=== PATIENT | female | born 1970 | race African-American/Black ===

== ENCOUNTER 2018-05-30 08:36 | Emergency (ER) | payer MEDICAID ==
[2018-05-30] MEDS ORDERED: ALBUTEROL SULF 2.5 MG/0.5ML(0.5%) NEB SOLN ONE ×2 (13:52→13:53)
[2018-05-30] MEDS ORDERED: IPRATROPIUM BROM 0.5 MG/2.5ML INH SOL ONE (13:53)
== END 2018-05-30 09:12 | disposition left against medical advice (07) ==
LOC: ER 08:40
DX: R06.02 Shortness of breath (principal); Z53.21 Procedure and treatment not carried out due to patient leaving prior to being seen by health care provider
CPT/HCPCS: J7611; J7644

== ENCOUNTER 2018-05-30 12:45 | Emergency (ER) | payer MEDICAID ==
[~2018-05-30] VITALS: Ht 170.2 cm; Wt 99.3 kg
[2018-05-30 13:37] VITALS: BP 129/67
[2018-05-30] MEDS ORDERED: IPRATROPIUM BROM 0.5 MG/2.5ML INH SOL NEB ONE (13:45)
[2018-05-30] MEDS ORDERED: cefTRIAXone SOD 1,000 MG VL IM ONE (13:45)
[2018-05-30] MEDS ORDERED: ALBUTEROL SULF 2.5 MG/0.5ML(0.5%) NEB SOLN NEB ONE (13:45)
== END 2018-05-30 14:34 | disposition home or self-care (01) ==
LOC: ER 12:45
DX: J45.909 Unspecified asthma, uncomplicated (principal); J03.90 Acute tonsillitis, unspecified; E11.9 Type 2 diabetes mellitus without complications; E78.5 Hyperlipidemia, unspecified; I10 Essential (primary) hypertension
CPT/HCPCS: 71046; 93005; 94640; 96372; 99283; J0696

== ENCOUNTER 2019-03-19 10:04 | Emergency (ER) | payer MEDICAID ==
[~2019-03-19] VITALS: Ht 170.2 cm; Wt 90.7 kg
[2019-03-19 10:22] VITALS: BP 150/91
== END 2019-03-19 11:43 | disposition home or self-care (01) ==
LOC: ER 10:04
DX: K04.7 Periapical abscess without sinus (principal); G51.0 Bell's palsy; J45.909 Unspecified asthma, uncomplicated; E11.9 Type 2 diabetes mellitus without complications; E78.5 Hyperlipidemia, unspecified; I10 Essential (primary) hypertension; F41.9 Anxiety disorder, unspecified; Z88.8 Allergy status to other drugs, medicaments and biological substances

== ENCOUNTER 2020-01-10 07:50 | Emergency (ER) | payer MEDICAID ==
[~2020-01-10] VITALS: Ht 170.2 cm; Wt 92.5 kg
[2020-01-10] MEDS ORDERED: cloNIDine HCL 0.1 MG TAB ONE (08:24)
[2020-01-10] MEDS ORDERED: cloNIDine HCL 0.1 MG TAB PO ONE ×2 (08:30→21:00)
[2020-01-10 09:09] LABS: Basophils # (auto) 0.1 10 ^3/uL (0-0.2); Basophils % (auto) 0.8 % (0.0-2.0); Eosinophils # (auto) 0 10 ^3/uL (0-0.8); Eosinophils % (auto) 0.1 % (0.0-7.0); Hemoglobin 12.1 g/dL (12.2-16.2); Lymphocytes % (auto) 8.7 % (10.0-50.0); Mean Corpuscular Hemoglobin 28.1 pg (28.0-32.0); Mean Corpuscular Hgb Conc. 31.7 g/dL (32.0-36.0); Mean Corpuscular Volume 88.4 fL (80.0-100.0); Monocytes # (auto) 0.5 10 ^3/uL (0-1.3); Monocytes % (auto) 4.1 % (0.0-12.0); Neutrophils # (auto) 9.6 10 ^3/uL (1.6-8.6); Neutrophils % (auto) 86.3 % (37.0-80.0); Platelet Count (auto) 401 10^3/uL (140-450); Red Cell Distribution Width 13.8 % (11.8-14.3); White Blood Cell 11.2 10^3/uL (4.4-10.8)
[2020-01-10 09:25] LABS: Calcium 9.3 mg/dL (8.5-10.1); Potassium 4.2 mmol/L (3.5-5.1)
[2020-01-10 09:28] LABS: Albumin 3.7 g/dL (3.4-5.0); BUN/Creatinine Ratio 18.2
[2020-01-10 09:33] LABS: Bilirubin, Total 0.8 mg/dL (0.2-1.0); Total Protein 8.4 g/dL (6.4-8.2)
[2020-01-10] MEDS ORDERED: SODIUM CHLORIDE 0.9% 1,000 ML IV ONE (10:22)
[2020-01-10] MEDS ORDERED: PROMETHAZINE HCL 25 MG/ML 1ML IV PRN (10:30)
[2020-01-10] MEDS ORDERED: KETOROLAC TROMETH 30 MG/ML 1ML VIAL IV ONE ×2 (10:30→21:00)
[2020-01-10 11:32] LABS: Urine Bacteria MOD /hpf (None Seen); Urine Blood 2+ /uL (Negative); Urine Hyaline Cast FEW /lpf (0 - 2); Urine Mucus FEW (None Seen); Urine Specific Gravity 1.031 (1.001-1.035); Urine WBC 157 /hpf (0 - 5)
[2020-01-10 12:21] LABS: Magnesium 1.9 mg/dL (1.6-2.6)
[2020-01-10] MEDS ORDERED: IOHEXOL 350 MG/ML 100ML IJ ONE (13:06)
[2020-01-10] MEDS ORDERED: cefTRIAXone 1GM/50ML D5W 50 ML IV ONE (15:00)
[2020-01-11] MEDS ORDERED: cefTRIAXone 1GM/50ML D5W 50 ML IV ONE (07:00)
[2020-01-11] MEDS ORDERED: METF-370 PO (08:51)
[2020-01-11] MEDS ORDERED: GLIP5TAB12 PO (08:54)
[2020-01-11] MEDS ORDERED: AMLO10TA13 PO (08:54)
[2020-01-11] MEDS ORDERED: ONDANSETRON HCL 4 MG/2 ML VIAL IV PRN (12:00)
[2020-01-11] MEDS ORDERED: HYDROmorphone HCL 2 MG/ML VL IV PRN ×2 (12:00→12:30)
[2020-01-11] MEDS ORDERED: DEXTROSE (50%) 50ML SYRG IV PRN (12:15)
[2020-01-11] MEDS ORDERED: HYDROcodone-ACET 5/325MG TAB PO PRN (12:30)
[2020-01-11] MEDS ORDERED: ACETAMINOPHEN 325 MG TAB PO PRN (12:30)
[2020-01-11] MEDS ORDERED: hydrALAZINE HCL 20 MG/ML VL IV PRN (12:30)
[2020-01-11] MEDS ORDERED: amLODIPine BESYLATE 5 MG TAB PO SCH (12:30)
[2020-01-11] MEDS ORDERED: METOPROLOL TARTRATE 25 MG TAB PO SCH (12:30)
[2020-01-11 12:32] LABS: Basophils # (auto) 0 10 ^3/uL (0-0.2); Basophils % (auto) 0.3 % (0.0-2.0); Eosinophils # (auto) 0.4 10 ^3/uL (0-0.8); Eosinophils % (auto) 4.5 % (0.0-7.0); Hematocrit 34.2 % (36.0-46.0); Hemoglobin 10.9 g/dL (12.2-16.2); Lymphocytes # (auto) 1.4 10 ^3/uL (0.4-5.4); Lymphocytes % (auto) 17.3 % (10.0-50.0); Mean Corpuscular Hemoglobin 28.4 pg (28.0-32.0); Mean Corpuscular Hgb Conc. 31.9 g/dL (32.0-36.0); Mean Corpuscular Volume 89.1 fL (80.0-100.0); Monocytes # (auto) 0.5 10 ^3/uL (0-1.3); Monocytes % (auto) 6.7 % (0.0-12.0); Neutrophils # (auto) 5.8 10 ^3/uL (1.6-8.6); Neutrophils % (auto) 71.2 % (37.0-80.0); Platelet Count (auto) 332 10^3/uL (140-450); Red Blood Cells 3.84 10^6/uL (4.0-5.20); Red Cell Distribution Width 13.6 % (11.8-14.3); White Blood Cell 8.1 10^3/uL (4.4-10.8)
[2020-01-11 12:48] LABS: Calcium 9.3 mg/dL (8.5-10.1); Potassium 3.9 mmol/L (3.5-5.1)
[2020-01-11 12:55] LABS: BUN/Creatinine Ratio 19.6
[2020-01-11 13:36] LABS: Cholesterol 211 mg/dL (< 200)
[2020-01-11 13:38] LABS: HDL Cholesterol 52 mg/dL (40-59); LDL Cholesterol 131 mg/dL (< 100); Triglycerides 175 mg/dL (< 150)
[2020-01-11] MEDS ORDERED: InsuLIN REG 1unit/0.01ml Soln (100units/ml) SC SCH (17:00)
[2020-01-11] MEDS ORDERED: ACCU-CHEK COMFORT CURVE STRIP VI SCH (17:00)
[2020-01-11] MEDS ORDERED: cefTRIAXone 1GM/50ML D5W 50 ML IV SCH (19:30)
[2020-01-11 20:01] VITALS: BP 173/87
[2020-01-11] MEDS ORDERED: cloNIDine HCL 0.1 MG TAB PO ONE (20:15)
[2020-01-12] MEDS ORDERED: cefTRIAXone 1GM/50ML D5W 50 ML IV SCH (10:00)
[2020-01-12] MEDS ORDERED: PANTOPRAZOLE 40 MG/10 ML VIAL INJ IV ONE (10:00)
== END 2020-01-11 20:34 | disposition home or self-care (01) ==
LOC: ER 07:50
DX: N39.0 Urinary tract infection, site not specified (principal); I10 Essential (primary) hypertension; E11.65 Type 2 diabetes mellitus with hyperglycemia; R79.89 Other specified abnormal findings of blood chemistry; E78.5 Hyperlipidemia, unspecified; J45.909 Unspecified asthma, uncomplicated; R11.2 Nausea with vomiting, unspecified
CPT/HCPCS: 36415; 71046; 71275; 74176; 76705; 76830; 76856; 80048; 80053; 80061; 81001; 82962; 83690; 83735; 84484; 85025; 85379; 87040; 93970; 96361; 96365; 96366; 96372; 96375; 96376; 99285; J0696; J1885; J2550; Q9967

== ENCOUNTER 2020-12-02 10:10 | Inpatient (IN) | payer MEDICAID ==
[~2020-12-02] VITALS: Ht 170.2 cm; Wt 66.2 kg
[~2020-12-02 10:10] MED LIST: AMLO-496 PO; GLIP5TAB12 PO; METF-370 PO
[2020-12-02] MEDS ORDERED: SODIUM CHLORIDE 0.9% 1,000 ML IV ONE (10:45)
[2020-12-02 11:15] LABS: Basophils # (auto) 0 10 ^3/uL (0-0.2); Basophils % (auto) 0.7 % (0.0-2.0); Eosinophils # (auto) 0.3 10 ^3/uL (0-0.8); Eosinophils % (auto) 5.5 % (0.0-7.0); Hematocrit 31.6 % (36.0-46.0); Hemoglobin 10.7 g/dL (12.2-16.2); Lymphocytes % (auto) 41.1 % (10.0-50.0); Mean Corpuscular Hemoglobin 28.7 pg (28.0-32.0); Mean Corpuscular Hgb Conc. 33.8 g/dL (32.0-36.0); Mean Corpuscular Volume 84.9 fL (80.0-100.0); Monocytes # (auto) 0.3 10 ^3/uL (0-1.3); Monocytes % (auto) 6.3 % (0.0-12.0); Neutrophils # (auto) 2.2 10 ^3/uL (1.6-8.6); Neutrophils % (auto) 46.4 % (37.0-80.0); Nucleated Red Blood Cells % 0.1 %; Platelet Count (auto) 368 10^3/uL (140-450); Red Blood Cells 3.73 10^6/uL (4.0-5.20); Red Cell Distribution Width 13.9 % (11.8-14.3); White Blood Cell 4.8 10^3/uL (4.4-10.8)
[2020-12-02 11:31] LABS: Albumin 3.4 g/dL (3.4-5.0); Calcium 9.4 mg/dL (8.5-10.1); Potassium 3.8 mmol/L (3.5-5.1)
[2020-12-02 11:38] LABS: BUN/Creatinine Ratio 20.5; Bilirubin, Total 0.3 mg/dL (0.2-1.0); Total Protein 7.3 g/dL (6.4-8.2)
[2020-12-02] MEDS ORDERED: ENOXAPARIN SOD 80 MG/0.8ML SYRINGE SC ONE (11:45)
[2020-12-02] MEDS ORDERED: ASPirin 81 mg TAB PO ONE (11:45)
[2020-12-02] MEDS ORDERED: ACETAMINOPHEN 500 MG TAB PO PRN (13:45)
[2020-12-02] MEDS ORDERED: cloNIDine HCL 0.1 MG TAB PO PRN (13:45)
[2020-12-02] MEDS ORDERED: LABETALOL HCL 5 MG/ML 4ML SYRINGE IV ONE (13:45)
[2020-12-02] MEDS ORDERED: METOPROLOL SUCCINATE XL 50 MG TAB PO ONE (13:45)
[2020-12-02] MEDS ORDERED: DEXTROSE (50%) 50ML SYRG IV PRN (13:45)
[2020-12-02] MEDS ORDERED: NITROGLYCERIN 0.4 MG SL TAB SL PRN (13:45)
[2020-12-02] MEDS ORDERED: PROMETHAZINE HCL 25 MG/ML 1ML IV PRN (13:45)
[2020-12-02] MEDS ORDERED: MORPHINE SULF INJ 2 MG/ML SYRINGE 1ML IV PRN (13:45)
[2020-12-02 14:14] LABS: Urine Bacteria NONE SEEN /hpf (None Seen); Urine Blood Negative /uL (Negative); Urine Specific Gravity 1.028 (1.001-1.035); Urine WBC 53 /hpf (0 - 5)
[2020-12-02 14:19] LABS: Alcohol, Urine < 3.0 mg/dL (0-10); Amphetamine Screen, Urine NEGATIVE (NEGATIVE); Barbiturate Scree,Urine NEGATIVE (NEGATIVE); Benzodiazephine Screen, Urine NEGATIVE (NEGATIVE); Cannabinoid Screen, Urine NEGATIVE (NEGATIVE); Cocaine Screen, Urine NEGATIVE (NEGATIVE); Opiate Scree,Urine NEGATIVE (NEGATIVE); Phencyclidine Screen, Urine NEGATIVE (NEGATIVE)
[2020-12-02 14:47] LABS: INR 1.03 (0.9-1.15); Partial Thromboplastin Time 34.5 sec (23.0-31.2)
[2020-12-02 17:14] LABS: Cholesterol 232 mg/dL (< 200)
[2020-12-02 17:18] LABS: HDL Cholesterol 46 mg/dL (40-59); LDL Cholesterol 146 mg/dL (< 100); Triglycerides 201 mg/dL (< 150)
[2020-12-02] MEDS: ACCU-CHEK COMFORT CURVE STRIP VI SCH ×2 (18:42→22:56)
[2020-12-02] MEDS: InsuLIN REG 1unit/0.01ml Soln (100units/ml) SC SCH ×2 (18:50→22:00)
[2020-12-02] MEDS: hydrALAZINE HCL 20 MG/ML VL IV PRN (19:46)
[2020-12-02 22:00] VITALS: BP 153/83
[2020-12-02] MEDS ORDERED: ATORVASTATIN 20 MG TAB PO SCH ×2 (22:00)
[2020-12-02] MEDS: GABAPENTIN 100 MG CAP PO SCH (22:55)
[2020-12-02] MEDS: amLODIPine BESYLATE 5 MG TAB PO SCH (22:56)
[2020-12-02] MEDS: FAMOTIDINE 20 MG TAB PO SCH (22:56)
[2020-12-02] MEDS: HYDROcodone-ACET 5/325MG TAB PO PRN (23:07)
[2020-12-03] MEDS ORDERED: PANT40T PO (03:46)
[2020-12-03] MEDS ORDERED: ASPI-231 PO (03:46)
[2020-12-03] MEDS ORDERED: BACL10TA PO (03:46)
[2020-12-03] MEDS ORDERED: METF-372 PO (03:46)
[2020-12-03] MEDS ORDERED: CLON0.3T PO (03:46)
[2020-12-03] MEDS ORDERED: ATOR-47 PO (03:46)
[2020-12-03] MEDS ORDERED: NIFE1TAB30 PO (03:46)
[2020-12-03] MEDS ORDERED: HYDR-4798 PO (03:46)
[2020-12-03] MEDS ORDERED: SERT50TA19 PO (03:46)
[2020-12-03] MEDS ORDERED: ALBU108A5 INH (03:46)
[2020-12-03] MEDS ORDERED: CLOP75TA70 PO (03:46)
[2020-12-03] MEDS ORDERED: DOCU-94 PO (03:47)
[2020-12-03] MEDS ORDERED: GABA100C9 PO (03:47)
[2020-12-03 05:00] VITALS: BP 155/96
[2020-12-03] MEDS: GABAPENTIN 100 MG CAP PO SCH (06:40)
[2020-12-03] MEDS: HYDROcodone-ACET 5/325MG TAB PO PRN (06:41)
[2020-12-03] MEDS: ACCU-CHEK COMFORT CURVE STRIP VI SCH ×3 (06:44→17:00)
[2020-12-03] MEDS: InsuLIN REG 1unit/0.01ml Soln (100units/ml) SC SCH ×3 (06:44→17:00)
[2020-12-03 08:00] VITALS: BP 167/98
[2020-12-03] MEDS: hydrALAZINE HCL 20 MG/ML VL IV PRN ×2 (08:32→14:20)
[2020-12-03] MEDS ORDERED: ADENOSINE 56 MG in GIVE UN-DILUTED 0 ML IV ONE (08:45)
[2020-12-03 09:00] VITALS: BP 167/98
[2020-12-03] MEDS ORDERED: METOPROLOL SUCCINATE XL 50 MG TAB PO SCH (10:00)
[2020-12-03] MEDS ORDERED: CLOPIDOGREL BISULFATE 75 MG TAB PO SCH (10:00)
[2020-12-03] MEDS ORDERED: ASPirin 81 mg TAB PO SCH (10:00)
[2020-12-03] MEDS: FAMOTIDINE 20 MG TAB PO SCH (10:40)
[2020-12-03] MEDS: amLODIPine BESYLATE 5 MG TAB PO SCH (10:53)
[2020-12-03] MEDS ORDERED: HYDR50TA15 PO (12:29)
[2020-12-03] MEDS ORDERED: OXYCODONE W/ ACETAMINOPHEN 5/325MG TABLET PO PRN (12:30)
[2020-12-03] MEDS ORDERED: LACT10SO3 PO (12:30)
[2020-12-03] MEDS: MAGNESIUM CITRATE SOLUTION 300 ML BTL PO ONE ×2 (12:30→12:55)
[2020-12-03 12:39] VITALS: BP 165/91
[2020-12-03] MEDS ORDERED: SENNA 8.6 MG TAB PO ONE (13:45)
[2020-12-03] MEDS ORDERED: GABAPENTIN 300 MG CAP PO SCH (14:00)
[2020-12-03] MEDS ORDERED: BISACODYL 10 MG RECT SUPP PR ONE (14:15)
[2020-12-03 16:07] VITALS: BP 154/90
[2020-12-03] MEDS ORDERED: cloNIDine HCL 0.1 MG TAB PO ONE (16:15)
[2020-12-03 16:56] VITALS: BP 162/104
[2020-12-03] MEDS ORDERED: cloNIDine HCL 0.1 MG TAB PO SCH (22:00)
== END 2020-12-03 18:35 | disposition hospice, home (50) | DRG 198 ==
LOC: ER 10:10 → TELE 13:43 → TELE-EAST 20:30
PROVIDERS: ADMIT Hospitalist; ATTEND Hospitalist
DX: R07.89 Other chest pain (principal); I24.9 Acute ischemic heart disease, unspecified; E11.22 Type 2 diabetes mellitus with diabetic chronic kidney disease; R54 Age-related physical debility; G62.9 Polyneuropathy, unspecified; I25.10 Atherosclerotic heart disease of native coronary artery without angina pectoris; I65.1 Occlusion and stenosis of basilar artery; G89.29 Other chronic pain; J44.9 Chronic obstructive pulmonary disease, unspecified; N18.9 Chronic kidney disease, unspecified; I12.9 Hypertensive chronic kidney disease with stage 1 through stage 4 chronic kidney disease, or unspecified chronic kidney disease; R77.8 Other specified abnormalities of plasma proteins; Z20.822 Contact with and (suspected) exposure to COVID-19; F41.9 Anxiety disorder, unspecified; Z90.710 Acquired absence of both cervix and uterus; Z79.02 Long term (current) use of antithrombotics/antiplatelets; Z79.82 Long term (current) use of aspirin; Z79.899 Other long term (current) drug therapy; Z80.3 Family history of malignant neoplasm of breast; Z82.3 Family history of stroke; Z82.49 Family history of ischemic heart disease and other diseases of the circulatory system; Z83.3 Family history of diabetes mellitus; I69.351 Hemiplegia and hemiparesis following cerebral infarction affecting right dominant side
CPT/HCPCS: 36415; 70450; 70545; 70547; 70551; 71045; 78452; 80053; 80061; 80307; 81001; 81025; 82962; 83036; 84484; 85025; 85610; 85730; 87426; 93005; 93017; 93306; 93925; 96361; 96372; 96374; 96375; G0378; J0153; J1815; J3490

== ENCOUNTER 2021-01-17 04:07 | Emergency (ER) | payer MEDICAID ==
[~2021-01-17] VITALS: Ht 170.2 cm; Wt 71.2 kg
[~2021-01-17 04:07] MED LIST changes: +ALBU108A5 INH; -AMLO-496 PO; +ASPI-231 PO; +ATOR-47 PO; +BACL10TA PO; +CLON0.3T PO; +CLOP75TA70 PO; +DOCU-94 PO; +GABA100C9 PO; -GLIP5TAB12 PO; +HYDR-4798 PO; +HYDR50TA15 PO; +LACT10SO3 PO; -METF-370 PO; +METF-372 PO; +NIFE1TAB30 PO; +PANT40T PO; +SERT50TA19 PO
[2021-01-17 05:48] LABS: Basophils # (auto) 0 10 ^3/uL (0-0.2); Basophils % (auto) 0.7 % (0.0-2.0); Eosinophils # (auto) 0 10 ^3/uL (0-0.8); Eosinophils % (auto) 0.1 % (0.0-7.0); Hematocrit 36.2 % (36.0-46.0); Hemoglobin 11.9 g/dL (12.2-16.2); Lymphocytes # (auto) 0.9 10 ^3/uL (0.4-5.4); Lymphocytes % (auto) 14.4 % (10.0-50.0); Mean Corpuscular Hemoglobin 27.7 pg (28.0-32.0); Mean Corpuscular Hgb Conc. 32.9 g/dL (32.0-36.0); Mean Corpuscular Volume 84.1 fL (80.0-100.0); Monocytes # (auto) 0.4 10 ^3/uL (0-1.3); Monocytes % (auto) 6.4 % (0.0-12.0); Neutrophils # (auto) 5.2 10 ^3/uL (1.6-8.6); Neutrophils % (auto) 78.4 % (37.0-80.0); Red Cell Distribution Width 13.8 % (11.8-14.3); White Blood Cell 6.6 10^3/uL (4.4-10.8)
[2021-01-17 06:08] LABS: Albumin 3.6 g/dL (3.4-5.0); Calcium 9.3 mg/dL (8.5-10.1); Potassium 3.9 mmol/L (3.5-5.1)
[2021-01-17 06:14] LABS: BUN/Creatinine Ratio 13.9; Bilirubin, Total 0.5 mg/dL (0.2-1.0); Total Protein 8.6 g/dL (6.4-8.2)
[2021-01-17] MEDS ORDERED: ENOXAPARIN SOD 80 MG/0.8ML SYRINGE SC ONE (06:30)
[2021-01-17] MEDS ORDERED: HYDROcodone-ACET 10/325MG TAB PO ONE (10:00)
[2021-01-17 10:07] VITALS: BP 174/90
== END 2021-01-17 11:07 | disposition home or self-care (01) ==
LOC: EDBD 04:07 → ER 04:07
DX: R07.9 Chest pain, unspecified (principal); R06.6 Hiccough; I10 Essential (primary) hypertension; E11.9 Type 2 diabetes mellitus without complications; E78.5 Hyperlipidemia, unspecified; Z86.73 Personal history of transient ischemic attack (TIA), and cerebral infarction without residual deficits; Z79.01 Long term (current) use of anticoagulants; Z79.899 Other long term (current) drug therapy; Z88.8 Allergy status to other drugs, medicaments and biological substances; Z20.822 Contact with and (suspected) exposure to COVID-19
CPT/HCPCS: 36415; 71045; 80053; 84484; 85025; 87426; 93005; 96372; 99285; J1650

== ENCOUNTER 2023-09-02 09:06 | Inpatient (IN) | payer OTHER, MEDICAID ==
[~2023-09-02] VITALS: Ht 171.4 cm; Wt 78.5 kg
[~2023-09-02 09:06] MED LIST changes: -ASPI-231 PO; +ASPI1TAB20 PO; +GABA-1308 PO; -GABA100C9 PO; +HYDR-4297 PO; -HYDR50TA15 PO; +SERT-206 PO; -SERT50TA19 PO
[2023-09-02] MEDS: cloNIDine HCL 0.1 MG TAB PO ONE (09:36)
[2023-09-02] MEDS: ONDANSETRON HCL 4 MG/2 ML VIAL IV ONE (10:20)
[2023-09-02 10:30] LABS: Basophils # (auto) 0 10 ^3/uL (0-0.2); Basophils % (auto) 0.6 % (0.0-2.0); Eosinophils # (auto) 0.3 10 ^3/uL (0-0.8); Eosinophils % (auto) 4.9 % (0.0-7.0); Hematocrit 39.4 % (36.0-46.0); Hemoglobin 12.6 g/dL (12.2-16.2); Lymphocytes # (auto) 1.8 10 ^3/uL (0.4-5.4); Lymphocytes % (auto) 34.4 % (10.0-50.0); Mean Corpuscular Hemoglobin 27.8 pg (28.0-32.0); Mean Corpuscular Hgb Conc. 31.9 g/dL (32.0-36.0); Mean Corpuscular Volume 87.2 fL (80.0-100.0); Monocytes # (auto) 0.4 10 ^3/uL (0-1.3); Monocytes % (auto) 7.9 % (0.0-12.0); Neutrophils # (auto) 2.7 10 ^3/uL (1.6-8.6); Neutrophils % (auto) 52.2 % (37.0-80.0); Nucleated Red Blood Cells % 0.1 %; Red Blood Cells 4.52 10^6/uL (4.0-5.20); White Blood Cell 5.2 10^3/uL (4.4-10.8)
[2023-09-02 10:47] LABS: Alanine Aminotransferase 14 U/L (7-40); Albumin 4.7 g/dL (3.2-4.8); Alkaline Phosphatase 87 U/L (46-116); Anion Gap 6 (5-15); Aspartate Aminotransferase 19 U/L (13-40); BUN/Creatinine Ratio 11.4 (10.0-20.0); Blood Urea Nitrogen 12 mg/dL (9-23); Calcium 10.5 mg/dL (8.7-10.4); Carbon Dioxide 28 mmol/L (20-30); Chloride 106 mmol/L (98-107); Glucose 151 mg/dL (74-106); Lipase 88 U/L (12-53); Potassium 3.8 mmol/L (3.5-5.1); Sodium 140 mmol/L (136-145)
[2023-09-02 10:48] LABS: Bilirubin, Total 0.5 mg/dL (0.2-1.0); Total Protein 8.1 g/dL (5.7-8.2)
[2023-09-02 12:23] VITALS: PULSE 85; RESP 17; O2SAT 98
[2023-09-02] MEDS ORDERED: MORPHINE SULFATE INJ 2 MG/ml SYRG IV PRN (14:15)
[2023-09-02] MEDS ORDERED: DOCUSATE SOD 100 MG CAP PO PRN (14:15)
[2023-09-02] MEDS ORDERED: ONDANSETRON HCL 4 MG/2 ML VIAL IV PRN (14:15)
[2023-09-02] MEDS ORDERED: NITROGLYCERIN 0.4 MG SL TAB SL PRN (14:15)
[2023-09-02] MEDS ORDERED: LABE300T3 PO (14:16)
[2023-09-02] MEDS: SODIUM CHLORIDE 0.9% 1,000 ML IV ONE (15:30)
[2023-09-02] MEDS: hydrALAZINE HCL 20 MG/ML VL IV PRN (16:43)
[2023-09-02 17:50] VITALS: BP 162/80
[2023-09-02 18:36] VITALS: BP 159/89; PULSE 101
[2023-09-02 20:00] VITALS: BP 154/88; PULSE 102; RESP 18; TEMP 98.1; O2SAT 93
[2023-09-02] MEDS: ATORVASTATIN 20 MG TAB PO SCH (21:08)
[2023-09-02] MEDS: cloNIDine HCL 0.1 MG TAB PO SCH (21:09)
[2023-09-02] MEDS: LABETALOL HCL 200 MG TAB PO SCH (21:11)
[2023-09-02 22:03] VITALS: BP 154/88; PULSE 110; RESP 18; TEMP 98.1; O2SAT 93
[2023-09-03] VITALS (7 sets, daily range): BP systolic 91–134; BP diastolic 50–70; PULSE 64–78; RESP 16–21; TEMP 97.6–98.3; O2SAT 95–98
[2023-09-03 05:27] LABS: Basophils # (auto) 0 10 ^3/uL (0-0.2); Basophils % (auto) 0.4 % (0.0-2.0); Eosinophils # (auto) 0.2 10 ^3/uL (0-0.8); Eosinophils % (auto) 4.2 % (0.0-7.0); Hematocrit 34.4 % (36.0-46.0); Hemoglobin 11.1 g/dL (12.2-16.2); Lymphocytes # (auto) 1.9 10 ^3/uL (0.4-5.4); Mean Corpuscular Hemoglobin 28.4 pg (28.0-32.0); Mean Corpuscular Hgb Conc. 32.4 g/dL (32.0-36.0); Mean Corpuscular Volume 87.6 fL (80.0-100.0); Monocytes # (auto) 0.4 10 ^3/uL (0-1.3); Neutrophils # (auto) 2.3 10 ^3/uL (1.6-8.6); Neutrophils % (auto) 47.4 % (37.0-80.0); Nucleated Red Blood Cells % 0.2 %; Red Blood Cells 3.93 10^6/uL (4.0-5.20); Red Cell Distribution Width 13.6 % (11.8-14.3); White Blood Cell 4.8 10^3/uL (4.4-10.8)
[2023-09-03 05:37] LABS: Alanine Aminotransferase 10 U/L (7-40); Alkaline Phosphatase 71 U/L (46-116); Anion Gap 6 (5-15); Aspartate Aminotransferase 22 U/L (13-40); BUN/Creatinine Ratio 10.8 (10.0-20.0); Blood Urea Nitrogen 15 mg/dL (9-23); Calcium 9.3 mg/dL (8.5-10.1); Carbon Dioxide 24 mmol/L (20-30); Chloride 107 mmol/L (98-107); Glucose 193 mg/dL (74-106); Potassium 4.2 mmol/L (3.5-5.1); Sodium 137 mmol/L (136-145)
[2023-09-03 05:38] LABS: Bilirubin, Total 0.4 mg/dL (0.2-1.0); Total Protein 6.7 g/dL (5.7-8.2)
[2023-09-03] MEDS: NIFEdipine ER 30 MG TAB PO SCH (09:12)
[2023-09-03] MEDS: ASPirin-EC 81 mg tab PO SCH (09:12)
[2023-09-03] MEDS: ENOXAPARIN SOD 40 MG/0.4 ML SYRINGE SC SCH (09:12)
[2023-09-03] MEDS: PANTOPRAZOLE 40 MG TAB PO SCH (09:12)
[2023-09-03] MEDS: LACTULOSE 20Gm/30ML SOLN PO SCH (09:13)
[2023-09-03 10:40] LABS: Triglycerides 123 mg/dL (< 150)
[2023-09-03 10:41] LABS: LDL Cholesterol 139 mg/dL (< 100)
[2023-09-03 10:42] LABS: Cholesterol 211 mg/dL (< 200); HDL Cholesterol 43 mg/dL (40-59)
[2023-09-03 16:23] LABS: Urine Bacteria MANY /hpf (None Seen); Urine Blood TRACE /uL (Negative); Urine Clarity CLOUDY (Clear); Urine Color Yellow (Yellow); Urine Mucus FEW (None Seen); Urine Protein, UAD 1+ (Negative); Urine Specific Gravity 1.027 (1.001-1.035); Urine Urobilinogen Normal (Negative); Urine WBC 568 /hpf (0 - 5); Urine pH 5.5 (5.0-8.0)
[2023-09-03] MEDS ORDERED: cloNIDine HCL 0.1 MG TAB PO PRN (17:30)
[2023-09-03] MEDS: ACETAMINOPHEN 325 MG TAB PO PRN (23:05)
[2023-09-04 05:00] VITALS: BP 133/67; PULSE 68; RESP 18; TEMP 97.5; O2SAT 95
[2023-09-04 05:59] LABS: Basophils # (auto) 0 10 ^3/uL (0-0.2); Basophils % (auto) 0.5 % (0.0-2.0); Eosinophils # (auto) 0.3 10 ^3/uL (0-0.8); Eosinophils % (auto) 5.6 % (0.0-7.0); Hematocrit 33.8 % (36.0-46.0); Lymphocytes # (auto) 2.3 10 ^3/uL (0.4-5.4); Mean Corpuscular Hemoglobin 28.6 pg (28.0-32.0); Mean Corpuscular Hgb Conc. 32.4 g/dL (32.0-36.0); Mean Corpuscular Volume 88.2 fL (80.0-100.0); Monocytes # (auto) 0.6 10 ^3/uL (0-1.3); Monocytes % (auto) 11.6 % (0.0-12.0); Neutrophils # (auto) 2.3 10 ^3/uL (1.6-8.6); Neutrophils % (auto) 40.3 % (37.0-80.0); Red Blood Cells 3.83 10^6/uL (4.0-5.20); White Blood Cell 5.6 10^3/uL (4.4-10.8)
[2023-09-04 06:15] LABS: Alanine Aminotransferase 14 U/L (7-40); Alkaline Phosphatase 69 U/L (46-116); Anion Gap 6 (5-15); Aspartate Aminotransferase 25 U/L (13-40); BUN/Creatinine Ratio 12.8 (10.0-20.0); Bilirubin, Total 0.4 mg/dL (0.2-1.0); Blood Urea Nitrogen 16 mg/dL (9-23); Calcium 9.4 mg/dL (8.5-10.1); Carbon Dioxide 25 mmol/L (20-30); Chloride 109 mmol/L (98-107); Glucose 168 mg/dL (74-106); Potassium 4.2 mmol/L (3.5-5.1); Sodium 140 mmol/L (136-145); Total Protein 6.5 g/dL (5.7-8.2)
[2023-09-04 08:00] VITALS: PULSE 68; PULSE 78; RESP 20; O2SAT 96
[2023-09-04 09:00] VITALS: BP 135/78; PULSE 73; RESP 18; TEMP 98.5; O2SAT 96
[2023-09-04] MEDS: HYDROcodone-ACET 5/325MG TAB PO PRN (10:25)
[2023-09-04] MEDS ORDERED: OMEP20TA PO (10:34)
[2023-09-04] MEDS ORDERED: CANA300T PO (10:34)
[2023-09-04] MEDS ORDERED: CETI-120 PO (10:34)
[2023-09-04] MEDS ORDERED: DICY10CA PO (10:34)
[2023-09-04] MEDS ORDERED: OXYC325T14 PO (10:54)
[2023-09-04 12:44] VITALS: BP 126/77; PULSE 68; RESP 16; TEMP 98.3; O2SAT 95
[2023-09-04 14:18] VITALS: BP 122/62; PULSE 72
== END 2023-09-04 15:11 | disposition home or self-care (01) | DRG 438 ==
LOC: ER 09:06 → TELE 14:15 → TELE-WESTW 16:07
PROVIDERS: ADMIT Internal Medicine Pulmonary Disease; ATTEND Internal Medicine Pulmonary Disease
DX: K85.90 Acute pancreatitis without necrosis or infection, unspecified (principal); I21.A1 Myocardial infarction type 2; N17.0 Acute kidney failure with tubular necrosis; I31.39 Other pericardial effusion (noninflammatory); K59.00 Constipation, unspecified; I16.0 Hypertensive urgency; E78.5 Hyperlipidemia, unspecified; I10 Essential (primary) hypertension; E11.9 Type 2 diabetes mellitus without complications; Z90.710 Acquired absence of both cervix and uterus; Z88.8 Allergy status to other drugs, medicaments and biological substances; Z86.73 Personal history of transient ischemic attack (TIA), and cerebral infarction without residual deficits; Z83.3 Family history of diabetes mellitus; Z82.49 Family history of ischemic heart disease and other diseases of the circulatory system
CPT/HCPCS: 36415; 74176; 76705; 80053; 80061; 81001; 82962; 83036; 83690; 84439; 84443; 84484; 85025; 85379; 93005; 93306; G0378; J2405